=== PATIENT | female | born 1990 | race Caucasian/White ===

== ENCOUNTER 2023-04-14 18:39 | Emergency (ER) | payer OTHER ==
[~2023-04-14] VITALS: Ht 157.5 cm; Wt 60.8 kg
[2023-04-14 18:56] VITALS: BP 122/82; TEMP 98.8; O2SAT 98
[2023-04-14] MEDS ORDERED: IBUP-1955 PO (19:28)
[2023-04-14] MEDS ORDERED: AMOX-430 PO (19:28)
[2023-04-14] MEDS ORDERED: KETOROLAC TROMETHAMINE INJ 60 MG/2 ML VIAL IM ONE (19:30)
[2023-04-14] MEDS ORDERED: KETOROLAC TROMETHAMINE INJ 30 MG/ML VIAL ONE (19:42)
== END 2023-04-14 22:32 | disposition home or self-care (01) ==
LOC: ER 18:47
DX: H66.91 Otitis media, unspecified, right ear (principal); R05.9 Cough, unspecified; Z90.89 Acquired absence of other organs
CPT/HCPCS: 99283; 96372; J1885